=== PATIENT | female | born 1955 | race Two or more races ===

== ENCOUNTER 2016-10-05 16:27 | Emergency (ER) | payer BC ==
[~2016-10-05] VITALS: Ht 160 cm; Wt 72.6 kg
[2016-10-05 16:40] VITALS: BP 131/89
[2016-10-05 17:02] LABS: APPEARANCE,URINE SLIGHTLY CLOUDY; KETONES,URINE NEGATIVE (NEGATIVE); LEUKOCYTE ESTERASE ,URINE 3+ (NEGATIVE); NITRITE,URINE POSITIVE (NEGATIVE); PH,URINE 5 (4.5-8.0); PROTEIN,URINE 1+ (NEGATIVE); UROBILINOGEN,URINE 12 MG/DL (0.0-1.0)
[2016-10-05 17:06] LABS: ICTOTEST POSITIVE
[2016-10-05 17:14] LABS: RBC,URINE 0-2 /HPF (0 - 2)
[2016-10-05 17:15] LABS: BACTERIA,URINE FEW /HPF; SQUAMOUS EPITHELIAL CELL,UR MODERATE /LPF (NONE/OCC); WBC,URINE TNTC /HPF (0 - 2)
[2016-10-05 17:25] VITALS: BP 131/89
[2016-10-05] MEDS ORDERED: CORTISPORIN EAR10 ML BOTH EARS (17:25)
[2016-10-05] MEDS ORDERED: CEPHALEXIN500 MG ORAL (17:25)
--- NOTE | 2016-10-05 17:44 | Emergency Room Report ---
History of Present Illness General Chief Complaint: Female Urogenital Problems Source: Patient Present Illness HPI The patient is a 61-year-old female presenting for lower abdominal pain and dysuria which began 2 days prior. Denies radiating pain. Worse with urinating She also admits to increased urinary frequency. She denies fever, chills, back pain, nausea, vomiting, vaginal discharge, hematuria. She also admits to bilateral ear pain x 1 week. 5/10 dull ache to both ears. Worse with touch. She denies any other symptoms Allergies: Coded Allergies: No Known Allergies (Unverified , 10/05/16) Patient History Past Medical History: see triage record Pertinent Family History: none Last Menstrual Period: years Reviewed Nursing Documentation: PMH: Agreed, PSxH: Agreed Nursing Documentation-PMH Hx Gastrointestinal Problems: Yes - Gastritis Review of Systems All Other Systems: negative except mentioned in HPI Physical Exam Vital Signs Date Time Temp Pulse Resp B/P Pulse Ox O2 Delivery O2 Flow Rate FiO2 10/05/16 16:31 98.1 76 14 131/89 96 Room Air Sp02 EP Interpretation: reviewed, normal General Appearance: no apparent distress, alert, GCS 15, non-toxic Head: normocephalic, atraumatic Eyes: bilateral eye PERRL, bilateral eye normal inspection ENT: normal pharynx, no angioedema, normal voice, uvula midline, moist mucus membranes, other - bilat EAC tender and erythematous Neck: full range of motion, supple/symm/no masses Respiratory: chest non-tender, lungs clear, normal breath sounds, speaking full sentences Cardiovascular #1: regular rate, rhythm, no edema Gastrointestinal: normal bowel sounds, soft, no mass, no guarding, tenderness - suprapubic Genitourinary: normal inspection, no CVA tenderness Musculoskeletal: back normal, gait/station normal, normal range of motion, non- tender Neurologic: alert, oriented x3, responsive, motor strength/tone normal, sensory intact, speech normal Psychiatric: judgement/insight normal, memory normal, mood/affect normal, no suicidal/homicidal ideation Skin: normal color, no rash, warm/dry, well hydrated Lymphatic: no adenopathy Medical Decision Making PA Attestation Dr. Hernandez is my supervising physician. Patient management was discussed with my supervising physician Diagnostic Impression: Primary Impression: Urinary tract infection Qualified Codes: N39.0 - Urinary tract infection, site not specified Additional Impression: Otitis externa Qualified Codes: H60.503 - Unspecified acute noninfective otitis externa, bilateral ER Course The patient is a 61 yo F presenting for pain with urination and ear pain Differential diagnosis include but not limited to otitis externa, otitis media, mastoiditis, sinusitis, pharyngitis Differential diagnosis considered but not limited to: UTI, BV, yeast infection, pyelonephritis PE: Afebrile NAD. HEENT: bilat EAC Tenderness with erythema. TM intact. No bulging Abdomen: Normal appearance. Non distended. No ecchymosis. Normal BS. TTP over suprapubic region only. No McBurney point tenderness. No guarding. No CVA tenderness Urinalysis is consistent with urinary tract infection The patient discharged home with a prescription for keflex and Cortisporin and is given ER precautions. Laboratory Tests Test 10/05/16 16:39 Urine Color [place] Urine Appearance Slightly cloudy Urine pH 5 (4.5-8.0) Urine Specific [place] 1.015 (1.005-1.035) Urine Protein 1+ (NEGATIVE) H Urine Glucose (UA) Negative (NEGATIVE) Urine Ketones Negative (NEGATIVE) Urine Occult Blood 1+ (NEGATIVE) H Urine Nitrite Positive (NEGATIVE) H Urine Bilirubin 3+ (NEGATIVE) H Urine Ictotest Positive Urine Urobilinogen 12 MG/DL (0.0-1.0) H Urine Leukocyte Esterase 3+ (NEGATIVE) H Urine RBC 0-2 /HPF (0 - 2) Urine WBC Tntc /HPF (0 - 2) H Urine Squamous Epithelial Cells Moderate /LPF (NONE/OCC) H Urine Bacteria Few /HPF (NONE) Lab Results Impression Consistent with UTI Last Vital Signs Date Time Temp Pulse Resp B/P Pulse Ox O2 Delivery O2 Flow Rate FiO2 10/05/16 16:31 98.1 76 14 131/89 96 Room Air Status: improved Disposition: HOME, SELF-CARE Condition: Improved Scripts Neomycin/Polymyxin B Sulf/Hc* (CORTISPORIN EAR SOLUTION*) 10 Ml Solution 4 DROP BOTH EARS QID, #10 ML 0 Refills Prov: TERZIAN,ARANZA P.A. 10/05/16 Cephalexin* (KEFLEX*) 500 Mg Capsule 500 MG ORAL EVERY 6 HOURS, #28 CAP Prov: TERZIAN,ARANZA P.A. 10/05/16 Patient Instructions: Otitis Externa, Urinary Tract Infection Additional Instructions: I discussed my findings with the patient. All questions and concerns have been answered. Treatment and medication compliance have been addressed. I advised the patient that they need to follow up with PMD in 3-5 days. Return to ED if symptoms worsen, new symptoms arise, or if needed for any reason. Patient verbalized understanding of discharge instructions. ARANZA ROBLERO Oct 05, 2016 17:44
== END 2016-10-05 17:25 | disposition home or self-care (01) ==
LOC: EMR 17:21
DX: N39.0 Urinary tract infection, site not specified (principal); H60.93 Unspecified otitis externa, bilateral; Z87.19 Personal history of other diseases of the digestive system
CPT/HCPCS: 81003; 87086; 87181; 99284